=== PATIENT | male | born 1980 | race Caucasian/White ===

== ENCOUNTER 2020-10-28 16:56 | Outpatient (REF) | payer OTHER, SELFPAY | END 2020-10-28 16:57 | disposition home or self-care (01) | LOC: HO.LAB 16:56 | PROVIDERS: Visit Provider Nurse Practitioner Family | DX: B00.9 Herpesviral infection, unspecified (principal) | CPT/HCPCS: 87255 ==

== ENCOUNTER 2024-04-27 14:48 | Outpatient (AMB) | payer OTHER, SELFPAY ==
[2024-04-27 15:05] VITALS: BP 128/80; PULSE 67; O2SAT 99; BMI 31.2
--- NOTE | 2024-04-27 15:05 | A.OFFPC_ITS ---
Vital Signs 04/27/24 15:05 Height 5 ft 9 in Weight 211 lb 8 oz BMI 31.2 BP 128/80 Blood Pressure Location Rt brachial Position Sitting Pulse 67 Pulse Source Pulse Oximeter Pulse Oximetry (%) 99 Oxygen Delivery Method Room Air Intake Visit Reasons: Re-establish Care ( Request PE) Allergies acetaminophen [Percocet] Allergy (Unknown, Verified 04/27/24 15:16) Unknown oxycodone [Percocet] Allergy (Unknown, Verified 04/27/24 15:16) Unknown Medication List - Last Reconciled 04/27/24 by MAURA Yang No Known Home Meds Tobacco use date assessed: 04/27/24 Dental Screening Dental Screen Date: 04/27/24 Did you have a dental visit in the last 12 months?: Yes Did you have a dental problem in the last 6 months where you did not have access to dental care?: No Was dental information given to patient?: Patient has dentist HPI HPI Comments History of Present Illness Details Patient is a 43-year-old male who I am meeting for the 1st time. Patient due for colonoscopy in 6 months will order. Patient does not know when his last Tdap immunization was, states he has not had a provider in over a decade, will give tetanus shot today office. Patient has primary complaint of gastric reflux especially after eating spicy food. Has tried Tums with minimal relief. States that the problem has gotten progressively worse over the past year especially when he is eating spicy food. Patient has been educated on at triggering foods to avoid, will also prescribe pantoprazole sodium. [facility] Family History (Updated 04/27/24 @ 15:16 by MAURA Yang) Father Congestive heart failure Social History Housing: House Patient Tobacco Use Status: Current someday Tobacco user e-Cigarette/Vaping Use: Never Used service: No Current occupational status: employed Cognitive needs: No Hearing needs: No Vision needs: No Questionnaire PHQ-9 Over the last 2 weeks, how often have you been bothered by any of the following problems? 1. Little interest or pleasure in doing things: several days 2. Feeling down, depressed, or hopeless: several days 3. Trouble falling or staying asleep, or sleeping too much: several days 4. Feeling tired or having little energy: more than half the days 5. Poor appetite or overeating: several days 6. Feeling bad about yourself - or that you are a failure or have let yourself or your family down: several days 7. Trouble concentrating on things, such as reading the newspaper or watching television: several days 8. Moving or speaking so slowly that other people could have noticed. Or the opposite - being so fidgety or restless that you have been moving around a lot more than usual: not at all 9. Thoughts that you would be better off or of hurting yourself in some way: not at all Total score: 8 Depression Screening Interpretation: Negative Depression Screening Done: Yes 24669 - PHQ-9 Billing: Yes Source: Developed by Drs. Leonel Patterson, Mehnaz Coffey, Luciano Mclain and colleagues, with an educational ramona from [employer]. Thrive Questionnaire Date Thrive assessed: 04/27/24 I am a: Patient What is your living situation today?: I have a steady place to live Within the past 12 months, did the food you bought not last and you didn't have the money to get more?: Never true Within the past 12 months, did you worry whether your food would run out before you got money to buy more?: Never true Do you have trouble paying for medicines?: No Do you have trouble getting transportation to medical appointments?: No Do you have trouble paying your heating and electricity bill?: No Do you have trouble taking care of your child, family member or friend?: No Do you have trouble with day-to-day activities such as bathing, preparing meals, shopping, managing finances, etc.?: No Are you currently unemployed and looking for a job?: No Are you interested in more education?: No Please select the resources that you would like help with: None Currently or been in a relationship where the following occur: no concerns reported THRIVE Score: 0 AUDIT C Alcohol Use Questionnaire (AUDIT-C) 1. How often do you have a drink containing alcohol?: Never 3. How often do you have six or more drinks on one occasion?: Never Total Score: 0 Score Reviewed/Action Taken: Yes ALEJO-7 AMB Questionnaire ALEJO-7 Date ALEJO - 7 assessed: 04/27/24 Feeling nervous, anxious, or on edge: 0 = Not at all Not being able to stop or control worryin = Not at all Worrying too much about different things: 0 = Not at all Trouble relaxin = Not at all Being so restless that it is hard to sit still: 0 = Not at all Becoming easily annoyed or irritable: 0 = Not at all Feeling afraid as if something awful might happen: 0 = Not at all Total ALEJO-7 score (0-4 normal; 5-9 mild; 10-14 moderate; 15-21 severe): 0 Source: Developed by Drs. Leonel Patterson, Mehnaz Coffey, Luciano Mclain and colleagues, with an educational ramona from [employer]. ALEJO-7 Assessment Billing ALEJO-7 Assessment Tool: ALEJO-7 Assessment 35088 Review of Systems Const All systems reviewed & are unremarkable except as noted in HPI and below Physical exam (Primary Care) Vital Signs: Last Vital Signs Pulse 67 04/27/24 15:05 BP 128/80 04/27/24 15:05 Pulse Ox 99 04/27/24 15:05 Oxygen Delivery Method Room Air 04/27/24 15:05 BMI result Body Mass Index 31.2 Tobacco/Smoking Status: Tobacco use Status Tobacco use date assessed 04/27/24 04/27/24 15:08 Patient Tobacco Use Status Current someday Tobacco 04/27/24 15:08 e-Cigarette/Vaping Use Never Used 04/27/24 15:08 PHQ-9: PHQ-9 Score PHQ-9: Total score 8 04/27/24 15:57 Depression Screening Interpretation: Negative Thrive Assessment: Date of Thrive Assessment Date Thrive assessed 04/27/24 04/27/24 15:57 Currently or been in a relationship where the following occur: no concerns reported Const Other: Appearance: Alert.? Oriented X3.? No acute distress.? Head: Normocephalic, Eyes: Sclera white. ENT: Pharynx normal.? Neck: Normal inspection.? Neck supple.? CVS: Normal heart rate and rhythm.? Pulses normal.? Respiratory: No respiratory distress.? Breath sounds normal.? Extremities: No lower extremity edema.? Back: No midline tenderness, no C-spine tenderness, full range of motion, no CVA tenderness bilaterally, +left SI tenderness. Neuro: Oriented X 3.? Immunizations Boostrix Tdap 2.5 Lf unit-8 mcg-5 Lf/0.5 mL intramuscular syringe Performing Provider: MAURA Yang Performing Location: [facility] [place] [facility] Administered by: Emil Lowe CMA on 04/27/24 15:58 Dose Route Admin Location Dispensed Lot Number Expiration Date NDC Dietitian Teacher 0.5 mL IM Left Deltoid 0.5 mL [id number] 05/18/26 82467-732-09 [employer] VIS Given Date VIS Provided VIS Publication Date 04/27/24 Single Vaccine 21 Eligibility Eligibility Date Funding Source Not VFC Eligible 04/27/24 Private Assessment and Plan Assessment & Plan (1) Chronic left sacroiliac joint pain: Comment: Will order left SI joint x-ray. Will refer to physical therapy Code(s): M53.3 - Sacrococcygeal disorders, not elsewhere classified; G89.29 - Other chronic pain (2) GERD (gastroesophageal reflux disease): Comment: Patient educated on foods to avoid. Should not eat at least 3 hours prior to bedtime. She drink plenty water. Should avoid caffeine. Will give patient pantoprazole sodium Code(s): K21.9 - Gastro-esophageal reflux disease without esophagitis Qualifiers: Esophagitis presence: esophagitis presence not specified Qualified Code(s): K21.9 - Gastro-esophageal reflux disease without esophagitis Plan: draw labs Plan Follow-up in 8 months. Orders: Orders Complete Blood Count Auto Diff Today Z13.0 - Encounter for screening for diseases of the blood and blood-forming organs and certain disorders involving the immune mechanism PSA,Total (Free>4and<10) Today Z12.5 - Encounter for screening for malignant neoplasm of prostate Vitamin D 25-OH (D2 and D3) Today Z13.21 - Encounter for screening for nutritional disorder Vitamin B6 Today Z13.21 - Encounter for screening for nutritional disorder Vitamin B12 Today Z13.21 - Encounter for screening for nutritional disorder UA CC w/rflx Micro + Cult Today Z13.89 - Encounter for screening for other di sorder Lipid Panel Today Z13.220 - Encounter for screening for lipoid disorders XR sacroiliac joint 1-2V Today G89.29 - Other chronic pain, M53.3 - Sacrococcygeal disorders, not elsewhere classified Comprehensive Met. Panel Today Z91.89 - Other specified personal risk factors, not elsewhere classified TSH reflex Free T4 Today Z13.29 - Encounter for screening for other suspected endocrine disorder TDaP Immunization Today Z23 - Encounter for immunization Medications: New pantoprazole 20 mg PO DAILY 60 tabs 0RF Boostrix Tdap (diphth,pertus(acell),tetanus) 0.5 mL IM ONCE 0.5 mL 0RF NS Z23 - Encounter for immunization Coding Level of Care Code New Pt Level 3 (00441) Diagnoses Chronic left sacroiliac joint pain M53.3; G89.29 Gastroesophageal reflux disease, unspecified whether esophagitis present K21.9 Esophagitis presence: esophagitis presence not specified Additional Codes ALEJO-7 Assessment Billing - ALEJO-7 Assessment Tool: ALEJO-7 Assessment 84771 ([id number]) Time Spent (min) 26
== END 2024-04-27 15:46 | disposition home or self-care (01) ==
PROVIDERS: PCP Nurse Practitioner Family; Visit Provider Nurse Practitioner Primary Care
DX: Z23 Encounter for immunization (principal)
CPT/HCPCS: 90471; 90715; 99203

== ENCOUNTER 2024-11-01 14:44 | Outpatient (AMB) | payer OTHER, SELFPAY ==
[2024-11-01 14:46] VITALS: BP 122/80; PULSE 77; O2SAT 98; BMI 32.0
--- NOTE | 2024-11-01 14:46 | A.OFFPC_ITS ---
Vital Signs 11/01/24 14:46 Height 5 ft 9 in Weight 217 lb BMI 32.0 BP 122/80 Blood Pressure Location Rt brachial Position Sitting Pulse 77 Pulse Source Pulse Oximeter Pulse Oximetry (%) 98 Oxygen Delivery Method Room Air Intake Visit Reasons: Annual PE Intake Note: pt is here for annual exam Allergies acetaminophen [Percocet] Allergy (Unknown, Verified 11/01/24 15:17) Unknown oxycodone [Percocet] Allergy (Unknown, Verified 11/01/24 15:17) Unknown Medication List - Last Reconciled 11/01/24 by Primitivo Villalba [facility] pantoprazole 20 mg PO DAILY Tobacco use date assessed: 04/27/24 Dental Screening Dental Screen Date: 04/27/24 HPI Annual PE HPI Details History of Present Illness The patient is a 43-year-old male presenting with concerns primarily for routine preventive screening and gastrointestinal symptoms. The patient was informed of the necessity for a colorectal cancer screening, given his age and approaching the recommended age for such screening. The patient is also experiencing significant gastroesophageal reflux disease (GERD) symptoms, characterized by pronounced acid reflux with minimal dysphagia. It has been noted that the patient often experiences a sensation of food getting stuck in his throat, which is an indication for further examination, specifically a referral for endoscopy. There is a reported family history of pancreatic cancer in an maternal aunt diagnosed at the age of 62, and heart disease, as the patient?s father has experienced hypertension. These familial histories prompted additional considerations for screening and preventive measures. The specific chronology of GERD symptoms indicates a progressive discomfort that merits further diagnostic evaluation. Previous interventions or treatments for GERD were not specified, but there is a plan for a thorough workup including endoscopy to assess possible complications such as Alexander's esophagus. Social History - Employment: Works in construction, spe cifically in concrete work, non-union. - Smoking: Occasional smoker, approximat kemi one pack every six months, typically socially or when drinking. - Alcohol Consumption: Consumes alcohol socially, typically beer, has mentioned drinking Wahl. - Family: , discussed with humor about his relationship dynamics. Recent family bereavement discussed; paternal grandmother recently at age 101. - Travel: Has connections to [place] an d appears to have visited recently. Review of Systems - Gastrointestinal: Reports significant acid reflux and minimal dysphagia (difficulty swallowing). - General: Denies significant headaches; attributes minor ones to marital status. - Respiratory: No specific mentions. Physical Exam General: Cooperative, healthy appearing, comfortable, no acute distress and well developed Orientation: Patient oriented x3 Limitations: No limitations Head: Normal to inspection Ears: Hearing grossly normal bilaterally Nose: Normal external nose present Face and sinus: Normal facial exam Eyes: Appearance normal, both eyes and all related structures Neck: Normal visual inspection and Yes full ROM Respiratory: Normal respiratory effort and able to speak in complete sentences. Clear to auscultation bilaterally Cardiovascular: Regular rate and rhythm. Normal S1 and S2 GI: Normal to inspection. Soft to palpation and nontender Skin: No rashes or lesions noted Neuro: Patient oriented x3 Extremities: Normal to inspection Results Plan - Gastroesophageal Reflux Disease: Plan for referral to gastroenterology for endoscopy to evaluate symptoms and screen for complications such as Alexander?s esophagus. cont ppi - Dysphagia: Investigate possible esopha geal stricture or other causes of narrowing during endoscopy, with potential dilation if indicated. - Screening for Colorectal Cancer: Refer ral for colonoscopy screening as part of preventive health maintenance. - Family History of Pancreatic Cancer: P jackelyn to include additional lab evaluations to explore potential markers related to family risk. - Family History of Heart Disease: Patie nt advised to monitor blood pressure, diet, and maintain regular evaluations to prevent future complications. Patient was informed and verbally consented to the use of an ambient scribe for clinic note documentation during this visit. Discussion Notes During our conversation, we discussed the importance of preventive screenings, particularly a colonoscopy due to his age. I have also advised that the dys phagia and GERD symptoms require further evaluation through endoscopy. I have reassured the patient regarding the safety and comfort of these procedures, including anesthesia used in such procedures. We acknowledged the family history of significant medical conditions, such as pancreatic cancer and heart disease, which guide our assessment and decision-making processes. We accentuated the importance of lifestyle modifications to manage blood pressure and discussed the relevance of additional lab tests to further investigate his family cancer risk. We agreed on a one-year follow-up given the patient's current stable condition if no concerning findings arise from diagnostics. Patient Instructions - Schedule and attend the referred colon oscopy screening. - Prepare for an endoscopy to evaluate G ERD and dysphagia symptoms. - Follow a GERD-friendly diet and lifest yle modifications to manage symptoms. - Abstain from excessive alcohol consump tion and smoking. - Monitor and maintain blood pressure wi th dietary and lifestyle adjustments. - Complete fasting lab work at your [facility] convenience, as advised. - Contact our office if new symptoms kapil se or current symptoms worsen. [facility] Surgical History No pertinent past surgical history Family History Father Congestive heart failure Social History Housing: House Patient Tobacco Use Status: Current someday Tobacco user e-Cigarette/Vaping Use: Never Used service: No Current occupational status: employed Cognitive needs: No Hearing needs: No Vision needs: No Questionnaire PHQ-9 Over the last 2 weeks, how often have you been bothered by any of the following problems? 1. Little interest or pleasure in doing things: several days 2. Feeling down, depressed, or hopeless: several days 3. Trouble falling or staying asleep, or sleeping too much: several days 4. Feeling tired or having little energy: more than half the days 5. Poor appetite or overeating: several days 6. Feeling bad about yourself - or that you are a failure or have let yourself or your family down: several days 7. Trouble concentrating on things, such as reading the newspaper or watching television: several days 8. Moving or speaking so slowly that other people could have noticed. Or the opposite - being so fidgety or restless that you have been moving around a lot more than usual: not at all 9. Thoughts that you would be better off or of hurting yourself in some way: several days Total score: 9 Depression Screening Interpretation: Negative Depression Screening Done: Yes 03744 - PHQ-9 Billing: Yes Source: Developed by Drs. Leonel Patterson, Mehnaz Coffey, Luciano Mclain and colleagues, with an educational ramona from [employer]. Thrive Questionnaire Date Thrive assessed: 11/01/24 I am a: Patient What is your living situation today?: I have a steady place to live Within the past 12 months, did the food you bought not last and you didn't have the money to get more?: Never true Within the past 12 months, did you worry whether your food would run out before you got money to buy more?: Never true Do you have trouble paying for medicines?: No Do you have trouble getting transportation to medical appointments?: No Do you have trouble paying your heating and electricity bill?: No Do you have trouble taking care of your child, family member or friend?: No Do you have trouble with day-to-day activities such as bathing, preparing meals, shopping, managing finances, etc.?: No Are you currently unemployed and looking for a job?: No Are you interested in more education?: No Please select the resources that you would like help with: None Currently or been in a relationship where the following occur: No concerns reported THRIVE Score: 0 AUDIT C Alcohol Use Questionnaire (AUDIT-C) 1. How often do you have a drink containing alcohol?: Monthly or less 2. How many drinks containing alcohol do you have on a typical day when you are drinking?: 1 or 2 3. How often do you have six or more drinks on one occasion?: Never Total Score: 1 Score Reviewed/Action Taken: Yes ALEJO-7 AMB Questionnaire ALEJO-7 Date ALEJO - 7 assessed: 11/01/24 Feeling nervous, anxious, or on edge: 0 = Not at all Not being able to stop or control worryin = Not at all Worrying too much about different things: 0 = Not at all Trouble relaxin = Not at all Being so restless that it is hard to sit still: 0 = Not at all Becoming easily annoyed or irritable: 1 = Several days Feeling afraid as if something awful might happen: 0 = Not at all Total ALEJO-7 score (0-4 normal; 5-9 mild; 10-14 moderate; 15-21 severe): 1 Source: Developed by Drs. Leonel Patterson, Mehnaz Coffey, Luciano Mclain and colleagues, with an educational ramona from [employer]. ALEJO-7 Assessment Billing ALEJO-7 Assessment Tool: ALEJO-7 Assessment 65215 Physical exam (Primary Care) Vital Signs: Last Vital Signs Pulse 77 11/01/24 14:46 BP 122/80 11/01/24 14:46 Pulse Ox 98 11/01/24 14:46 Oxygen Delivery Method Room Air 11/01/24 14:46 BMI result Body Mass Index 32.0 Tobacco/Smoking Status: Tobacco use Status Tobacco use date assessed 04/27/24 11/01/24 14:52 Patient Tobacco Use Status Current someday Tobacco 11/01/24 14:52 e-Cigarette/Vaping Use Never Used 11/01/24 14:52 PHQ-9: PHQ-9 Score PHQ-9: Total score 8 11/01/24 14:52 Depression Screening Interpretation: Negative Thrive Assessment: Date of Thrive Assessment Date Thrive assessed 11/01/24 11/01/24 14:52 Currently or been in a relationship where the following occur: No concerns reported Coding Level of Care Code Est Pt Prev Care 40-64y(71466) Diagnoses Screening for colon cancer Z12.11 Physical exam Z00.00 Family history of pancreatic cancer Z80.0 Screening for prostate cancer Z12.5 Additional Codes ALEJO-7 Assessment Billing - ALEJO-7 Assessment Tool: ALEJO-7 Assessment 57452 ([id number]) PHQ-9 - 85013 - PHQ-9 Billing: Yes ([id number]) Assessment & Plan Assessment & Plan (1) Screening for colon cancer: Code(s): Z12.11 - Encounter for screening for malignant neoplasm of colon Category: Medical (2) Physical exam: Code(s): Z00.00 - Encounter for general adult medical examination without abnormal findings Category: Medical (3) Family history of pancreatic cancer: Code(s): Z80.0 - Family history of malignant neoplasm of digestive organs Category: Medical (4) Screening for prostate cancer: Code(s): Z12.5 - Encounter for screening for malignant neoplasm of prostate Category: Medical Plan . Orders: Orders Complete Blood Count Auto Diff Today Z00.00 - Encounter for general adult med ical examination without abnormal findings Lipid Panel Today Z00.00 - Encounter for general adult medical examination without abnormal findings Prostate Specific Antigen Scr Today Z12.5 - Encounter for screening for malignant neoplasm of prostate Comprehensive [place]. Panel Fast Today Z00.00 - Encounter for general adult medical examination without abnormal findings TSH reflex Free T4 Today Z00.00 - Encounter for general adult medical examination without abnormal findings UA CC w/rflx Micro + Cult Today Z00.00 - Encounter for general adult medical examination without abnormal findings Carbohydrate Antigen 19-9 Today Z80.0 - Family history of malignant neoplasm of digestive organs Referrals Gastroenterology Referral Z12.11 - Encounter for screening for malignant neoplasm of colon Medications: Refilled pantoprazole 20 mg PO DAILY 60 tabs 0RF pantoprazole 20 mg PO DAILY 60 tabs 0RF
== END 2024-11-01 16:02 | disposition home or self-care (01) ==
PROVIDERS: PCP Nurse Practitioner Family; Visit Provider Nurse Practitioner Family
DX: Z12.11 Encounter for screening for malignant neoplasm of colon (principal); Z00.00 Encounter for general adult medical examination without abnormal findings; Z80.0 Family history of malignant neoplasm of digestive organs; Z12.5 Encounter for screening for malignant neoplasm of prostate

== ENCOUNTER → 2024-11-01 14:44 | Outpatient (BNVA) | payer OTHER, SELFPAY | PROVIDERS: PCP Nurse Practitioner Family; Visit Provider Nurse Practitioner Family | DX: Z00.00 Encounter for general adult medical examination without abnormal findings (principal); K21.9 Gastro-esophageal reflux disease without esophagitis; R13.10 Dysphagia, unspecified; Z80.0 Family history of malignant neoplasm of digestive organs | CPT/HCPCS: 96127 ==

== ENCOUNTER 2025-06-04 14:47 | Outpatient (AMB) | payer OTHER, SELFPAY ==
--- NOTE | 2025-06-04 15:06 | AM.OFFWIN_ITS ---
Intake Vital Signs 06/04/25 15:07 Height 5 ft 9 in Weight 216 lb BMI 31.9 BP 132/80 Blood Pressure Location Rt brachial Position Sitting Pulse 91 Pulse Source Pulse Oximeter Temp 98.2 F Temp Source Oral Pulse Oximetry (%) 97 Oxygen Delivery Method Room Air Intake Visit Reasons: EP Pain on LT knee Intake Note: presents with left testicle and left groin pain Patient Tobacco Use Status: Current someday Tobacco user Allergies acetaminophen (Percocet) Allergy (Unknown, Verified 06/04/25 15:11) outer body experience/body dibilitating experience oxycodone (Percocet) Allergy (Unknown, Verified 06/04/25 15:09) Unknown Do you need a note to return to daycare/school/sports/work: No HPI HPI Comments History of Present Illness Details 44 y/o Male patient who presents to the walk in clinic with c/o Left sided Testicle pain for 3 weeks. Reports pain started immediately right after a Hockey Game but does not remember being Hit around the area. Denies any previous Trauma, injury or surgery. Denies urinary symptoms. [facility] Medical History (Updated 06/04/25 @ 16:01 by Raegan Bee NP) Left testicular pain Surgical History No pertinent past surgical history Family History Father Congestive heart failure Social History Housing: House Patient Tobacco Use Status: Current someday Tobacco user e-Cigarette/Vaping Use: Never Used service: No Current occupational status: employed Cognitive needs: No Hearing needs: No Vision needs: No Review of Systems Const All systems reviewed & are unremarkable except as noted in HPI and below Physical Exam Vital Signs: Last Vital Signs Temp 98.2 F 06/04/25 15:07 Pulse 91 06/04/25 15:07 BP 132/80 06/04/25 15:07 Pulse Ox 97 06/04/25 15:07 Oxygen Delivery Method Room Air 06/04/25 15:07 BMI result Body Mass Index 31.9 Const Orientation/consciousness: patient oriented x3 General: Yes no CVA tenderness Penis: normal penis and uncircumcised Meatus: meatus normal and No Erythema at meatus Scrotum: scrotum normal, not edematous, not erythematous, no hydroceles, no inguinal hernias, no masses, no scrotal swelling and no varicoceles Testes: not enlarged, no testicular mass, no testicular swelling, testicular tenderness on the left and No testicular atrophy Back/Spine/Pelvis Back: no CVA tenderness Neuro General: patient oriented x3, gait normal and moves all extremities Psych Speech and movement: Normal speech and movement present Assessment & Plan Assessment & Plan (1) Left testicular pain: Code(s): N50.812 - Left testicular pain Plan: Ordered Scrotum U/S for Today. Will Call Patient with Results once available. Ice/Hot Probably Injured during Hockey Game NSAIDs for pain relief. Orders: Orders US scrotum Today N50.812 - Left testicular pain Coding Level of Care Code Est Pt Level 4 (28758) Diagnoses Left testicular pain N50.812 Time Spent (min) 20
[2025-06-04 15:07] VITALS: BP 132/80; PULSE 91; TEMP 36.8; O2SAT 97; BMI 31.9
== END 2025-06-04 16:15 | disposition home or self-care (01) ==
PROVIDERS: PCP Nurse Practitioner Family; Visit Provider Nurse Practitioner Family
DX: N50.812 Left testicular pain (principal)

== ENCOUNTER 2025-06-04 16:08 | Outpatient (REF) | payer OTHER, SELFPAY ==
--- NOTE | ~2025-06-04 | US_ITS ---
EXAMINATION: US SCROTUM HISTORY: N50.812 - Left testicular pain. COMPARISON: There are no prior studies available for comparison. FINDINGS: Real-time grayscale ultrasound imaging of the scrotum was performed. RIGHT TESTICLE: The right testis measures 4.2 x 2.3 x 4.0 cm and demonstrates normal homogeneous echotexture. No masses are seen. The right testis demonstrates normal color Doppler flow. RIGHT EPIDIDYMIS: Normal in size, shape, and vascularity. There is a 4 mm epididymal head cyst. LEFT TESTICLE: The left testis measures 4.3 x 2.0 x 3.0 cm and demonstrates normal homogeneous echotexture. No masses are seen. The left testis demonstrates normal color Doppler flow. LEFT EPIDIDYMIS: Normal in size, shape, and vascularity. VARICOCELE: There is a left-sided varicocele. HYDROCELE: No significant hydrocele is seen. OTHER COMMENTS: None. US/US scrotum IMPRESSION: Left-sided varicocele. 4 mm right epididymal head cyst. Otherwise unremarkable scrotal ultrasound. Electronically signed by: Leonel Altman MD 06/05/2025 07:11 AM EDT
== END 2025-06-04 16:09 | disposition home or self-care (01) ==
LOC: HO.HMGCX 16:08
PROVIDERS: PCP Nurse Practitioner Family; Visit Provider Nurse Practitioner Family
DX: N50.3 Cyst of epididymis (principal); I86.1 Scrotal varices; N50.812 Left testicular pain
CPT/HCPCS: 76870

== ENCOUNTER → 2025-06-04 16:14 | Outpatient (BNV) | payer OTHER, SELFPAY | PROVIDERS: PCP Nurse Practitioner Family; Visit Provider Radiology Diagnostic Radiology | DX: N50.812 Left testicular pain (principal) | CPT/HCPCS: 76870 ==

== ENCOUNTER 2025-08-28 15:14 | Outpatient (AMB) | payer OTHER, SELFPAY ==
--- NOTE | 2025-08-28 15:22 | A.OFFVIS_ITS ---
Intake Visit Reasons: Scrotum pain Intake Note: New Patient is present for scrotum pain Urology Rx:none Blood Thinners:none Imaging completed: ultrasoumd done 06/04/25 Phone Manager Required: No Accompanied by: Child Allergies acetaminophen (Percocet) Allergy (Unknown, Verified 08/28/25 15:22) outer body experience/body dibilitating experience oxycodone (Percocet) Allergy (Unknown, Verified 08/28/25 15:22) Unknown HPI Comments Details: Camilo is a pleasant male. He is a patient of Dr. Venegas. He is seen for the following urologic conditions - left inguinal disruption Initial report of left testicular pain On exam has pain at insertion of rectus abdominis into symphysis pubis Consistent with inguinal disruption Home exercises for deep fascial release provided Reassurance provided P.r.n. follow-up [facility] Medical History (Updated 06/04/25 @ 16:01 by Raegan Bee NP) Left testicular pain Surgical History No pertinent past surgical history Family History Father Congestive heart failure Social History Housing: House Patient Tobacco Use Status: Current someday Tobacco user e-Cigarette/Vaping Use: Never Used service: No Current occupational status: employed Cognitive needs: No Hearing needs: No Vision needs: No Review of Systems Const Denies chills and Denies fever(s) Card Reports no additional complaints and Denies syncope Resp Denies cough GI Denies abdominal pain and Denies heartburn Reports as per HPI and Denies change in libido Neuro Denies syncope Psych Denies change in libido Endo Denies change in libido Physical Exam Const General: cooperative, healthy appearing, comfortable and no acute distress Orientation/consciousness: patient oriented x3 HEENT Face and sinus: Yes normal facial exam Mouth: moist mucous membranes Neck Neck: Yes normal visual inspection, Yes full ROM and Yes trachea midline Chest Chest palpation & inspection: normal inspection of the chest Resp Effort & Inspection: normal respiratory effort, able to speak in complete sentences and no respiratory distress GI Inspection: Yes normal to inspection Back/Spine/Pelvis Cervical Spine: normal cervical lordosis Thoracic/Lumbar Spine: thoracic and lumbar spine normal to inspection Skin General skin exam: no rashes or lesions noted Neuro General: patient oriented x3, gait normal, tone normal and moves all extremities Extrem General: Yes normal to inspection and Yes capillary refill normal Assessment & Plan Assessment & Plan (1) Left testicular pain: Code(s): N50.812 - Left testicular pain Category: Medical Plan P.r.n. follow-up Patient Instructions: This note is constructed using voice recognition software. While every effort has been made to ensure accuracy army officer errors may have been included. Imaging studies, laboratory and physical exam results were discussed and reviewed in detail. No major barriers to patient understanding were identified. An opportunity to ask questions regarding the treatment plan was provided. All questions were answered. The patient expressed understanding and agreement with the above treatment plan. The patient is aware they should contact our office by phone for worsening of their current condition or the appearance of new urologic symptoms. Compliance is encouraged with any medications and followup testing that is ordered. It is a privilege to participate in the urologic care of your patient. If you have any questions or concerns regarding treatment for the above conditions, or other urologic issues, please do not hesitate to contact me. The office telephone contact is [phone]. Sincerely, Dr Valente Aponte MD, [facility] - Urology Compassionate Specialist Care for the Genitourinary System Coding Level of Care Code New Pt Level 3 (52441) Diagnoses Left testicular pain N50.812
== END 2025-08-28 16:21 | disposition home or self-care (01) ==
LOC: HO.HUSH 15:15
PROVIDERS: PCP Nurse Practitioner Family; Visit Provider Urology
DX: N50.812 Left testicular pain (principal)
CPT/HCPCS: 99203

== ENCOUNTER 2025-10-30 08:33 | Outpatient (REF) | payer OTHER, SELFPAY ==
[2025-10-30 10:05] LABS: MANUAL DIFF FLAG NO
[2025-10-30 10:21] LABS: Hematocrit 43.9 % (42.0-52.0); Hemoglobin 14.4 g/dl (14.0-18.0); Imm Gran Abs Auto 0.03 X10*3/uL (0.00-0.03); Imm Gran Pct Auto 0.3 % (0.0-0.4); Lymphocytes Absolute Auto 2.7 X10*3/uL (1.2-4.9); Mean Corpuscular HGB Conc 32.8 g/dl (31.0-36.0); Mean Corpuscular Hemoglobin 27.9 pg (27.0-33.0); Mean Corpuscular Volume 85.1 fL (80.0-98.0); NRBC Abs Auto 0.000 X10*3/uL (0.0-0.012); NRBC Pct Auto 0.0 /100WBC (0.0-0.2); Platelet Count 304 X10*3/uL (160-400); Red Blood Count 5.16 X10*6/uL (4.60-5.80); White Blood Count 9.2 X10*3/uL (4.8-10.8)
[2025-10-30 10:47] LABS: Alanine Aminotransferase 22 U/L (0-40); Albumin Level 4.8 g/dL (3.5-5.0); Alkaline Phosphatase 98 U/L (39-117); Anion Gap 10 (12-20); Aspartate Amino Transferase 21 U/L (5-37); Blood Urea Nitrogen 12 mg/dL (9-16); Calcium 9.7 mg/dL (8.4-10.2); Carbon Dioxide 30 mmol/L (22-29); Chloride 106 mmol/L (96-108); Cholesterol 214 mg/dL (<200); Estimated Glomerular Filt Rate > 60; HDL Cholesterol 49 mg/dL (>40); Potassium 4.5 mmol/L (3.3-5.1); Sodium 141 mmol/L (135-145); Total Protein 7.9 g/dL (6.5-8.0); Triglycerides 185 mg/dL (<150)
== END 2025-10-30 08:34 | disposition home or self-care (01) ==
LOC: HO.HMGCLDS 08:33
PROVIDERS: PCP Nurse Practitioner Family; Visit Provider Nurse Practitioner Family
DX: Z00.00 Encounter for general adult medical examination without abnormal findings (principal); Z12.5 Encounter for screening for malignant neoplasm of prostate; Z13.6 Encounter for screening for cardiovascular disorders; Z13.29 Encounter for screening for other suspected endocrine disorder; Z80.0 Family history of malignant neoplasm of digestive organs
CPT/HCPCS: 36415; 80053; 80061; 84153; 84443; 85025; 86301

== ENCOUNTER 2025-11-05 16:08 | Outpatient (AMB) | payer OTHER, SELFPAY ==
[2025-11-05 16:11] VITALS: BP 116/78; PULSE 67; RESP 16; O2SAT 99; BMI 32.8
--- NOTE | 2025-11-05 16:11 | A.OFFPC_ITS ---
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 He has a history of acid reflux and has been taking a PPI intermittently. He reports it works much better when taken daily. Recent lab results show a slightly elevated cholesterol. Health Maintenance - A referral will be made for a colon sc reening. - The patient is not currently intereste d in receiving the flu vaccination. - Labs were previously completed and yamileth wed slightly elevated cholesterol. Social History Review of Systems - General: Denies transplant history. - Respiratory: Denies dyspnea. - Gastrointestinal: Reports acid reflux. Denies abdominal pain, hematochezia, constipation, or diarrhea. - Psychiatric: Denies suicidal or homici michael ideation. Physical Exam General: Cooperative, healthy appearing, comfortable, no acute distress and well developed Orientation: Patient oriented x3 Limitations: No limitations Head: Normal to inspection Ears: Hearing grossly normal bilaterally Nose: Normal external nose present Face and sinus: Normal facial exam Eyes: Appearance normal, both eyes and all related structures Neck: Normal visual inspection and Yes full ROM Respiratory: Normal respiratory effort and able to speak in complete sentences. Clear to auscultation bilaterally Cardiovascular: Regular rate and rhythm. Normal S1 and S2 GI: Normal to inspection. Soft to palpation and nontender : testicles without masses/lesions and no hernias appreciated Skin: No rashes or lesions noted Neuro: Patient oriented x3 Extremities: Normal to inspection Results - Labs: Cholesterol is slightly elevated . Plan Patient was informed and verbally consented to the use of an ambient scribe for clinic note documentation during this visit. 1. Gastroesophageal Reflux Disease I explained that his PPI works more effectively when taken daily, rather than intermittently, and he will consider this. I advised him to reduce acidic foods and avoid eating late at night. 2. Elevated Cholesterol I encouraged him to manage his diet due to slightly elevated cholesterol found in his recent labs. 3. Preventative Care I will refer him for a colon screening. He declined the flu vaccination at this time. Follow-up is scheduled in one year. Discussion Notes I discussed the patient's acid reflux, explaining that his PPI medication is more effective when taken daily rather than intermittently. I counseled him on dietary modifications, including reducing acidic foods and avoiding late-night meals, to help manage his symptoms. We reviewed his recent lab work, which showed slightly elevated cholesterol, and I encouraged him to be mindful of his diet. I informed him that I will provide a referral for a colon screening and that he should follow up in one year. Patient Instructions - For your acid reflux, it is best to ta ke your medication every day as it works much better that way. - Try to eat less acidic food and avoid eating too close to bedtime. - Your recent lab tests showed your chol esterol is a little high. Please be mindful of your diet. - We will give you a referral for a colo n cancer screening. - Please schedule a follow-up appointveronika t in one year. COUNT INCLUDES THE [facility] Medical History Left testicular pain Surgical History No pertinent past surgical history Family History Father Congestive heart failure Social History Housing: House Patient Tobacco Use Status: Current someday Tobacco user e-Cigarette/Vaping Use: Never Used service: No Current occupational status: employed Cognitive needs: No Hearing needs: No Vision needs: No Questionnaire Thrive Questionnaire Date Thrive assessed: 10/29/25 I am a: Patient What is your living situation today?: I have a steady place to live Within the past 12 months, did the food you bought not last and you didn't have the money to get more?: I choose not to answer this question Within the past 12 months, did you worry whether your food would run out before you got money to buy more?: I choose not to answer this question Do you have trouble paying for medicines?: Yes Do you have trouble getting transportation to medical appointments?: No Do you have trouble paying your heating and electricity bill?: I choose not to answer this question Do you have trouble taking care of your child, family member or friend?: No Do you have trouble with day-to-day activities such as bathing, preparing meals, shopping, managing finances, etc.?: No Are you currently unemployed and looking for a job?: No Are you interested in more education?: No Please select the resources that you would like help with: Housing/Assisted, Food, Paying for medicine, Transportation, Utilities, Childcare, Care for elder or disabled, Daily support, Job search/training and Education THRIVE Score: 0 AUDIT C Alcohol Use Questionnaire (AUDIT-C) 1. How often do you have a drink containing alcohol?: Never 2. How many drinks containing alcohol do you have on a typical day when you are drinking?: 1 or 2 3. How often do you have six or more drinks on one occasion?: Monthly Total Score: 2 ALEJO-7 AMB Questionnaire ALEJO-7 Date ALEJO - 7 assessed: 11/01/24 Feeling nervous, anxious, or on edge: 0 = Not at all Not being able to stop or control worryin = Not at all Worrying too much about different things: 1 = Several days Trouble relaxin = Several days Being so restless that it is hard to sit still: 1 = Several days Becoming easily annoyed or irritable: 1 = Several days Feeling afraid as if something awful might happen: 1 = Several days Total ALEJO-7 score (0-4 normal; 5-9 mild; 10-14 moderate; 15-21 severe): 5 Source: Developed by Drs. Leonel Patterson, Mehnaz Coffey, Luciano Mclain and colleagues, with an educational ramona from [employer]. Physical exam (Primary Care) Vital Signs: Last Vital Signs Pulse 67 11/05/25 16:11 Resp 16 11/05/25 16:11 BP 116/78 11/05/25 16:11 Pulse Ox 99 11/05/25 16:11 Oxygen Delivery Method Room Air 11/05/25 16:11 BMI result Body Mass Index 32.8 Tobacco/Smoking Status: Tobacco use Status Tobacco use date assessed 04/27/24 11/05/25 16:12 Patient Tobacco Use Status Current someday Tobacco 11/05/25 16:12 e-Cigarette/Vaping Use Never Used 11/05/25 16:12 Thrive Assessment: Date of Thrive Assessment Date Thrive assessed 10/29/25 11/05/25 16:12 Coding Level of Care Code Est Pt Prev Care 40-64y(88650) Diagnoses Screening for colon cancer Z12.11 Physical exam Z00.00 Assessment & Plan Assessment & Plan (1) Screening for colon cancer: Code(s): Z12.11 - Encounter for screening for malignant neoplasm of colon Category: Medical (2) Physical exam: Code(s): Z00.00 - Encounter for general adult medical examination without abnormal findings Category: Medical Plan . Orders: Referrals Gastroenterology Referral Z12.11 - Encounter for screening for malignant neoplasm of colon
== END 2025-11-05 16:55 | disposition home or self-care (01) ==
LOC: HO.HMCC 16:09
PROVIDERS: PCP Nurse Practitioner Family; Visit Provider Nurse Practitioner Family
DX: Z00.00 Encounter for general adult medical examination without abnormal findings (principal); Z12.11 Encounter for screening for malignant neoplasm of colon